=== PATIENT | male | born 1955 | race Caucasian/White ===

== ENCOUNTER → 2016-03-03 | Outpatient (REF) | payer BC | LOC: M LAB REF 16:30 | PROVIDERS: ATTEND Internal Medicine Medical Oncology | DX: C18.1 Malignant neoplasm of appendix (principal) ==

== ENCOUNTER → 2016-03-10 | Outpatient (CLI) | payer BC ==
--- NOTE | 2016-03-11 10:11 | REP ---
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 Increased CEA levels. The patient underwent laparoscopic right hemicolectomy, greater omentectomy on November 11, 2015. Original appendectomy August 2015. COMPARISONS: Comparison CT study of the abdomen and pelvis from January 11, 2016 done at [facility]. TECHNIQUE: 68 minutes following the intravenous injection of a 8.3 mCi dose of F-18 FDG, three-dimensional PET scintigraphy is acquired from the skull base to the proximal thighs. Triplanar noncontrast CT scanning is acquired through the same anatomic range for attenuation correction, and image registration with scan parameters optimized to minimize radiation exposure to the patient. PET scintigraphy and CT datasets were fused and displayed on a workstation with multiplanar and projection display capability. PET/CT FINDINGS: Head and neck soft tissues show no suspicious hypermetabolic uptake. There is no abnormal hypermetabolic uptake within the chest. There are granulomatous calcifications in the lung parenchyma bilaterally consistent with old granulomatous disease. No pulmonary nodule or mass lesion is seen. In the abdomen and pelvis, there is normal hepatic, splenic, gastrointestinal, and genitourinary FDG accumulation. No abnormal abdominal or pelvic hypermetabolic uptake is seen. IMPRESSION: Postoperative changes in the abdomen. Old granulomatous disease in the chest. No abnormal hypermetabolic uptake is seen. Signed by Renan Whitfield MD 03/11/2016 01:55 P
== END ==
LOC: M RAD 16:11
PROVIDERS: ATTEND Internal Medicine Medical Oncology
DX: C18.1 Malignant neoplasm of appendix (principal)
CPT/HCPCS: 78815; A9552

== ENCOUNTER → 2016-08-27 | Outpatient (REF) | payer BC | LOC: M LAB REF 13:29 | PROVIDERS: ATTEND Internal Medicine Medical Oncology | DX: C18.1 Malignant neoplasm of appendix (principal) ==

== ENCOUNTER → 2022-04-19 | Outpatient (CLI) | payer BC | LOC: M PLARAD 14:44 | PROVIDERS: ATTEND Internal Medicine Pulmonary Disease | DX: C34.11 Malignant neoplasm of upper lobe, right bronchus or lung (principal) ==

== ENCOUNTER → 2022-06-11 | Outpatient (CLI) | payer BC, OTHER ==
[~2022-06-11] MED LIST: AMLO1TAB24; HYDR-4571; IBUP80TA PO; LOSA25TA13 PO; QUET200T2; ROSU40TA4 PO
== END ==
LOC: M ONCR 09:16
PROVIDERS: ATTEND General Practice
DX: C34.11 Malignant neoplasm of upper lobe, right bronchus or lung (principal); C79.51 Secondary malignant neoplasm of bone; C77.1 Secondary and unspecified malignant neoplasm of intrathoracic lymph nodes; F17.210 Nicotine dependence, cigarettes, uncomplicated; Z71.2 Person consulting for explanation of examination or test findings; Z71.6 Tobacco abuse counseling; Z79.891 Long term (current) use of opiate analgesic; Z79.899 Other long term (current) drug therapy; Z80.8 Family history of malignant neoplasm of other organs or systems; Z85.038 Personal history of other malignant neoplasm of large intestine; Z88.8 Allergy status to other drugs, medicaments and biological substances; Z90.49 Acquired absence of other specified parts of digestive tract
CPT/HCPCS: 99406; G0463

== ENCOUNTER → 2022-06-14 | Outpatient (CLI) | payer BC, OTHER ==
[~2022-06-14] VITALS: Ht 177.8 cm; Wt 77.0 kg
[~2022-06-14] MED LIST changes: +LIDOCAINE 1% MDV 20ML VIAL As Ordered ONE; +MIDAZOLAM INJ 2MG/2ML VIAL As Ordered ONE; +NS 1,000 ML IV SCH; +ceFAZolin 2 GM/D5W 50 ML IV BAG As Ordered ONE; +ceFAZolin SOD 2 GM in IV 1 EA IV ONE; +diphenhydrAMINE 50MG/ML VIAL As Ordered ONE; +fentaNYL 100 MCG/2 ML INJECTION As Ordered ONE
[2022-06-14 14:45] VITALS: BP 148/70
== END ==
LOC: M IRPRO 11:33
PROVIDERS: ATTEND Internal Medicine Medical Oncology
DX: C34.90 Malignant neoplasm of unspecified part of unspecified bronchus or lung (principal)
CPT/HCPCS: 36561; 99152; 99153; C1769; C1788; C1894; J0690; J1200; J2250; J3010

== ENCOUNTER → 2022-06-29 | Outpatient (POV) | payer BC, OTHER ==
[~2022-06-29] VITALS: Ht 177.8 cm; Wt 77.2 kg
[~2022-06-29] MED LIST changes: -LIDOCAINE 1% MDV 20ML VIAL As Ordered ONE; -MIDAZOLAM INJ 2MG/2ML VIAL As Ordered ONE; -NS 1,000 ML IV SCH; +ONDA8TAB8 PO; +PROC10TA5 PO; -ceFAZolin 2 GM/D5W 50 ML IV BAG As Ordered ONE; -ceFAZolin SOD 2 GM in IV 1 EA IV ONE; -diphenhydrAMINE 50MG/ML VIAL As Ordered ONE; -fentaNYL 100 MCG/2 ML INJECTION As Ordered ONE
[2022-06-29 13:35] VITALS: BP 156/77
== END ==
LOC: M IRPOV 13:30
PROVIDERS: ATTEND Radiology Diagnostic Radiology
DX: Z45.2 Encounter for adjustment and management of vascular access device (principal); Z88.8 Allergy status to other drugs, medicaments and biological substances

== ENCOUNTER → 2022-07-07 | Outpatient (RCR) | payer BC, OTHER ==
[~2022-07-07] MED LIST changes: +BUSP5TA PO; +NYST100085 TOP; +OMEP-173 PO
== END ==
LOC: M ONCR 06-16 13:03
PROVIDERS: ATTEND General Practice
DX: C34.11 Malignant neoplasm of upper lobe, right bronchus or lung (principal)

== ENCOUNTER → 2022-08-06 | Outpatient (RCR) | payer OTHER | LOC: M ONCR 07-08 09:28 | PROVIDERS: ATTEND General Practice | DX: C34.11 Malignant neoplasm of upper lobe, right bronchus or lung (principal) ==

== ENCOUNTER 2022-08-11 09:32 | Outpatient (RCR) | payer OTHER ==
[~2022-08-11 09:32] MED LIST changes: -BUSP5TA PO
[2022-08-11] MEDS ORDERED: BUSP5TA PO ×2 (10:00→11:09)
[2022-08-13] MEDS ORDERED: QUET50TA4 PO (16:06)
[2022-09-08] MEDS ORDERED: QUET50TA4 PO (16:03)
== END 2022-09-06 ==
LOC: M ONCR 09:32
PROVIDERS: ATTEND General Practice
DX: C34.11 Malignant neoplasm of upper lobe, right bronchus or lung (principal)

== ENCOUNTER → 2022-08-17 | Outpatient (REF) | payer BC, OTHER ==
[~2022-08-17] MED LIST changes: +BUSP5TA PO; +QUET50TA4 PO
[2022-08-17 15:56] LABS: APPEARANCE, URINE CLEAR (CLEAR); BACTERIA, URINE AUTO NEGATIVE (NEGATIVE); BILIRUBIN, URINE AUTO NEGATIVE (NEGATIVE); BLOOD, URINE BLOOD NEGATIVE (NEGATIVE); COLOR, URINE YELLOW (YELLOW); GLUCOSE, URINE (UA) AUTO NEGATIVE (NEGATIVE); KETONE, URINE AUTO NEGATIVE (NEGATIVE); LEUKOCYTE ESTERASE, URINE AUTO NEGATIVE (NEGATIVE); NITRITE, URINE AUTO NEGATIVE (NEGATIVE); PROTEIN, URINE AUTO NEGATIVE (NEGATIVE); RBC, URINE AUTO 1 /HPF (0-3); SPECIFIC GRAVITY URINE AUTO 1.014 (1.002-1.035); SQUAMOUS EPITHELIAL CELL UR AU 0 /HPF (0-6); UROBILINOGEN, URINE AUTO 0.2 mg/dL (0.0-2.0); WBC, URINE AUTO 1 /HPF (0-3)
== END ==
LOC: M SMT 13:28
PROVIDERS: ATTEND Urology
DX: R31.29 Other microscopic hematuria (principal)

== ENCOUNTER → 2022-09-09 | Outpatient (CLI) | payer OTHER ==
[~2022-09-09] MED LIST changes: +ISOVUE-370 76% 100ML VIAL As Ordered ONE
== END ==
LOC: M RAD 12:37
PROVIDERS: ATTEND Nurse Practitioner
DX: C34.90 Malignant neoplasm of unspecified part of unspecified bronchus or lung (principal); J44.9 Chronic obstructive pulmonary disease, unspecified
CPT/HCPCS: 71260; Q9967